=== PATIENT | male | born 1970 | race Caucasian/White ===

== ENCOUNTER 2019-07-07 18:13 | Inpatient (IN) | payer MEDICAID ==
[~2019-07-07] VITALS: Ht 175.3 cm; Wt 70.3 kg
[2019-07-07] MEDS ORDERED: BUPR-93 PO (18:47)
[2019-07-07] MEDS ORDERED: OLAN10TA3 PO (18:47)
[2019-07-07] MEDS ORDERED: CITA10TA68 PO (18:47)
[2019-07-07] MEDS ORDERED: HYD25 PO (18:47)
[2019-07-07] MEDS ORDERED: GABA-531 PO (18:47)
[2019-07-07] MEDS ORDERED: DiphenhydrAMINE HCL 25 MG CAPSULE PO ONE (20:15)
[2019-07-07 20:23] LABS: BASOPHILS % (AUTO) 1.1 % (0.0-2.0); EOSINOPHILS % (AUTO) 8.5 % (1.0-6.0); HEMATOCRIT 41.8 % (41-53); LYMPHOCYTES # (AUTO) 3.7 K/uL (1.0-4.8); LYMPHOCYTES % (AUTO) 45.7 % (22.0-44.0); MEAN CORPUSCULAR HEMOGLOBIN 31.3 pg (26.0-34.0); MEAN CORPUSCULAR HGB CONC 33.6 G/dL (31.0-37.0); MEAN CORPUSCULAR VOLUME 93 fL (80-100); MONOCYTES # (AUTO) 0.6 K/uL (0.1-1.0); MONOCYTES % (AUTO) 7.1 % (2.0-9.0); NEUTROPHILS % (AUTO) 37.6 % (40.0-70.0); PLATELET COUNT (AUTO) 288 K/uL (150-450); RED BLOOD CELL COUNT(AUTO) 4.47 MIL/uL (4.50-5.90); RED CELL DISTRIBUTION WIDTH 14.4 % (11.5-14.5)
[2019-07-07 21:04] LABS: ANION GAP 12 mmol/L (8-16); CALCIUM, TOTAL 8.2 mg/dL (8.8-10.5); CARBON DIOXIDE 25 mmol/L (22-29); CHLORIDE 107 mmol/L (98-107); CREATININE 0.77 mg/dL (0.60-1.30); GLOMERULAR FILTR. RATE CALC > 60 mL/min (>60); GLUCOSE,RANDOM 130 mg/dL (70-110); POTASSIUM 3.8 mmol/L (3.5-5.1); SODIUM SERUM 144 mmol/L (136-145); UREA NITROGEN, BLOOD 11 mg/dL (7-18)
[2019-07-07 21:08] LABS: ALANINE AMINOTRANSFERASE 14 U/L (12-78); ALBUMIN 3.7 g/dL (3.4-5.0); ALKALINE PHOSPHATASE 57 U/L (46-116); ASPARTATE AMINOTRANSFERASE 12 U/L (15-37); BILIRUBIN,TOTAL 0.2 mg/dL (0.1-1.0); TOTAL PROTEIN, SERUM 7.1 g/dL (6.4-8.2)
[2019-07-07] MEDS ORDERED: HALOPERIDOL 5 MG TABLET PO PRN (21:15)
[2019-07-07] MEDS ORDERED: ZOLPIDEM TARTRATE 10 MG TABLET PO PRN (21:15)
[2019-07-08] VITALS (13 sets, daily range): BP systolic 100–116; BP diastolic 61–73
[2019-07-08] MEDS ORDERED: INFLUENZA VIRUS VACCINE QVS 2019-20 (3YR+)/PF 60 MCG/0.5 ML SYRINGE IM ONE (01:00)
[2019-07-08] MEDS ORDERED: ACETAMINOPHEN 325 MG TABLET PO PRN ×2 (12:30→15:30)
[2019-07-08] MEDS: NICOTINE 21 MG/24 HOUR PATCH TD SCH (12:42)
[2019-07-08] MEDS: LORazepam 1 MG TABLET PO PRN (12:42)
[2019-07-08] MEDS ORDERED: PETROLATUM,WHITE 28 GM JELLY TP PRN (15:30)
[2019-07-08] MEDS ORDERED: MAG HYDROX/AL HYDROX/SIMETH ES 30 ML SUSPENSION UDCUP PO PRN (15:30)
[2019-07-08] MEDS ORDERED: IBUPROFEN 400 MG TABLET PO PRN (15:30)
[2019-07-08] MEDS ORDERED: NICOTINE 14 MG/24 HOUR PATCH TD PRN (15:30)
[2019-07-08] MEDS ORDERED: LOPERAMIDE HCL 2 MG CAPSULE PO PRN (15:30)
[2019-07-08] MEDS ORDERED: GuaiFENesin/D-METHORPHAN [SUGAR-FREE] 200-20MG/10 ML SYRUP UDCUP PO PRN (15:30)
[2019-07-08] MEDS ORDERED: ONDANSETRON HCL 4 MG TABLET PO PRN (15:30)
[2019-07-08] MEDS ORDERED: CloNIDine HCL 0.1 MG TABLET PO PRN (15:30)
[2019-07-08] MEDS ORDERED: ALBUTEROL SULFATE HFA 90 MCG/PUFF 8 GM INHALER IH PRN (15:30)
[2019-07-08] MEDS ORDERED: DOCUSATE SODIUM 100 MG CAPSULE PO PRN (15:30)
[2019-07-08] MEDS ORDERED: MAGNESIUM HYDROXIDE SUSPENSION 30 ML UDCUP PO PRN (15:30)
[2019-07-08] MEDS: GABAPENTIN 300 MG CAPSULE PO SCH (16:26)
[2019-07-08] MEDS: OLANZapine 10 MG TABLET PO SCH (20:26)
[2019-07-09] VITALS (7 sets, daily range): BP systolic 107–138; BP diastolic 64–89
[2019-07-09] MEDS: GABAPENTIN 300 MG CAPSULE PO SCH ×3 (08:47→16:30)
[2019-07-09] MEDS: CITALOPRAM HYDROBROMIDE 10 MG TABLET PO SCH (08:47)
[2019-07-09] MEDS: BuPROPion HCL XL 150 MG ER TABLET PO SCH (08:47)
[2019-07-09] MEDS: LORazepam 1 MG TABLET PO PRN ×2 (08:47→16:30)
[2019-07-09] MEDS: NICOTINE 21 MG/24 HOUR PATCH TD SCH (08:47)
[2019-07-09 09:15] LABS: HEMOGLOBIN A1C 5.8 % (4.5-6.2)
[2019-07-09 10:10] LABS: CHOL/HDL RATIO 2.2 (4.2-7.3); FREE T4 (FREE THYROXINE) 0.92 ng/dL (0.76-1.46); THYROID STIMULATING HORMONE 0.15 uIU/mL (0.36-3.74)
[2019-07-09] MEDS: OLANZapine 10 MG TABLET PO SCH (20:02)
[2019-07-10 06:38] VITALS: BP 100/84
[2019-07-10 08:03] VITALS: BP 110/60
[2019-07-10] MEDS: GABAPENTIN 300 MG CAPSULE PO SCH ×3 (08:11→17:00)
[2019-07-10] MEDS: BuPROPion HCL XL 150 MG ER TABLET PO SCH (08:11)
[2019-07-10] MEDS: CITALOPRAM HYDROBROMIDE 10 MG TABLET PO SCH (08:11)
[2019-07-10] MEDS: NICOTINE 21 MG/24 HOUR PATCH TD SCH (08:40)
[2019-07-10 08:50] VITALS: BP 110/60
[2019-07-10 16:02] VITALS: BP 109/65
[2019-07-10] MEDS: LORazepam 1 MG TABLET PO PRN (19:00)
[2019-07-10 19:28] VITALS: BP 109/65
[2019-07-10] MEDS: OLANZapine 10 MG TABLET PO SCH (20:20)
[2019-07-11] MEDS ORDERED: GABA-531 PO (04:45)
[2019-07-11] MEDS ORDERED: OLAN10TA3 PO (04:45)
[2019-07-11] MEDS ORDERED: CITA10TA68 PO (04:46)
[2019-07-11] MEDS ORDERED: BUPR-93 PO (04:47)
[2019-07-11 06:10] VITALS: BP 119/73
[2019-07-11 06:37] VITALS: BP 119/73
== END 2019-07-11 11:06 | disposition home or self-care (01) | DRG 751 ==
LOC: EMS 18:15 → B3A 22:50
PROVIDERS: ADMIT Psychiatry & Neurology Psychiatry; ATTEND Psychiatry & Neurology Psychiatry
DX: F33.3 Major depressive disorder, recurrent, severe with psychotic symptoms (principal); R45.851 Suicidal ideations; F43.10 Post-traumatic stress disorder, unspecified; F15.10 Other stimulant abuse, uncomplicated; F10.129 Alcohol abuse with intoxication, unspecified; R45.87 Impulsiveness; Z59.0 Homelessness; Z79.899 Other long term (current) drug therapy; Z87.891 Personal history of nicotine dependence
CPT/HCPCS: 83036; 84439; 84443; G0480